=== PATIENT | female | born 1960 | race Caucasian/White ===

== ENCOUNTER → 2019-09-15 | Outpatient (CLI) | payer SELFPAY ==
[~2019-09-15] MED LIST: ALPR0.5T PO; ATOR40TA70 PO; CALC-250 PO; CALC600T12 PO; OMEP20TA33 PO; TRM50T PO
--- NOTE | 2019-09-15 15:50 | Diagnostic Imaging Report ---
INDICATION: Left wrist pain for 2 to 3 months. TIME OF EXAM: 3:39 PM. TECHNIQUE: Three views of the left wrist were obtained. FINDINGS: The distal radius and ulna are intact. There is a well-corticated osseous density adjacent to the ulnar styloid, perhaps an old fracture fragment. The carpus appears to be intact. The visualized metacarpals are unremarkable. No fractures are seen. IMPRESSION: No acute bony abnormality is detected. Dictated by: Dictated on workstation # [id number]
== END ==
LOC: RAD FS 15:06
PROVIDERS: ATTEND Nurse Practitioner
DX: M25.532 Pain in left wrist (principal)
CPT/HCPCS: 73110

== ENCOUNTER 2021-01-03 09:39 | Outpatient (CLI) | payer OTHER ==
[~2021-01-03] VITALS: Ht 157.5 cm; Wt 43.5 kg
[2021-01-03 09:31] VITALS: BP 124/81
[~2021-01-03 09:39] MED LIST changes: -CALC600T12 PO; +CALC600T91 PO
[2021-01-03] MEDS ORDERED: ONDANSETRON 4 MG/2 ML (SDV) Z0FRAN IV PRN (10:00)
[2021-01-03] MEDS ORDERED: ACETAMINOPHEN 500 MG TAB (TYLENOL) PO PRN (10:00)
[2021-01-03] MEDS ORDERED: EPINEPHrine INJECTION 1 MG/ML AMP IM PRN (10:00)
[2021-01-03] MEDS ORDERED: CASIRIVIMAB/IMDEVIMAB 1,200 MG in NS (IVPB) 250 ML IV ONE (10:00)
[2021-01-03] MEDS ORDERED: diphenhydrAMINE 50 MG/ML INJ (BENADRYL) IV PRN (10:00)
[2021-01-03 11:09] VITALS: BP 139/73
== END 2021-01-03 11:55 | disposition home or self-care (01) ==
LOC: INFUSION 09:39
PROVIDERS: ATTEND Registered Nurse
DX: Z23 Encounter for immunization (principal); U07.1 COVID-19

== ENCOUNTER 2021-05-14 19:44 | Emergency (ER) | payer OTHER ==
[~2021-05-14] VITALS: Ht 154 cm; Wt 47.0 kg
[2021-05-14 19:58] LABS: CLARITY,URINE CLOUDY; COLOR,URINE RED
[2021-05-14] MEDS ORDERED: PHENAZOPYRIDINE 100 MG (PYRIDIUM) TABLET PO ONE ×2 (20:00)
[2021-05-14] MEDS ORDERED: PHENAZOPYRIDINE 100 MG (PYRIDIUM) TABLET ONE (20:01)
[2021-05-14 20:03] LABS: BILIRUBIN,URINE NEGATIVE (NEGATIVE); GLUCOSE, URINE (UA) NEGATIVE (NEGATIVE); KETONES,URINE NEGATIVE (NEGATIVE); LEUKOCYTE ESTERASE ,URINE 1+ (NEGATIVE); NITRITE,URINE NEGATIVE (NEGATIVE); PH,URINE 7.5 (5-9); PROTEIN,URINE 2+ (NEGATIVE); RBC,URINE TNTC /HPF
--- NOTE | 2021-05-14 20:08 | ED GU-Female ---
General Chief Complaint: - Reproductive Stated Complaint: REPRODUCTIVE ISSUE Nursing Triage Note: PT REPORTS SHE THINKS SHE HAS A UTI BECAUSE SHE IS HAVING BURNING, FREQUENCY, AND BLOOD IN HER URINE. SHE HAS BLADDER PAIN. Source: patient Exam Limitations: no limitations History of Present Illness Date Seen by Provider: May 14, 2021 Time Seen by Provider: 19:45 Initial Comments Patient is a 61-year-old female who presents with urinary frequency urgency and burning with gross hematuria. Symptoms began 2 days ago. No fever chills, nausea vomiting or sweats. No flank pain or history of kidney stones. Patient is not on anticoagulation therapy. No medications or therapies taken prior to ED arrival. Also reports productive cough with clear sputum. Timing/Duration: yesterday Severity/Quality: moderate Location: suprapubic Radiation: other Activities at Onset: other Sexual [place] History: other Associated Symptoms: other Allergies and Home Medications Allergies Coded Allergies: No Allergy Information Available (Unverified , 12/01/15) EW Patient Home Medication List Home Medication List Reviewed: Yes Alprazolam (Xanax) 0.5 Mg Tablet, 0.5 MG PO DAILY, (Reported) Entered as Reported by: YOLANDA TERRAZAS on 12/15/15 1353 Atorvastatin Calcium (Atorvastatin Calcium) 40 Mg Tablet, 40 MG PO DAILY, (Reported) Entered as Reported by: YOLANDA TERRAZAS on 12/15/15 1353 Calcium Carbonate (Calcium) 600 Mg Tablet, 600 MG PO DAILY, (Reported) Entered as Reported by: YOLANDA TERRAZAS on 12/15/15 1353 Cholecalciferol (Vitamin D) 5,000 Unit Capsule, 5,000 UNIT PO DAILY, (Reported) Entered as Reported by: YOLANDA TERRAZAS on 12/15/15 1353 Omeprazole Magnesium (Prilosec Otc) 20 Mg Tablet.dr 20 MG PO DAILY Prescribed by: SAVANNAH MALONE on 12/19/15 1221 Tramadol HCl (Tramadol HCl) 50 Mg Tablet, 50 MG PO Q6H PRN for PAIN, (Reported) Entered as Reported by: YOLANDA TERRAZAS on 12/15/15 1353 Review of Systems Review of Systems Constitutional: see HPI Genitourinary: dysuria, frequency, hematuria, urgency Past Leidiju-Keuwwh-Nyxjfm Hx Patient Social History Tobacco Use?: Yes Tobacco type used: Cigarettes Smoking Status: Current Everyday Smoker Use of E-Cig and/or Vaping dev: No Substance use?: No Alcohol Use?: No Pt feels they are or have been: No Immunizations Up To Date First/Initial COVID19 Vaccinat: 2020 Second COVID19 Vaccination Shaun: 2020 COVID19 Vaccine Belt Glass Sander: pfizer Physical Exam Vital Signs Vital Signs - First Documented 05/14/21 19:49 Temp 36.4 Pulse 92 Resp 16 B/P (MAP) 155/104 (121) Pulse Ox 96 O2 Delivery Room Air Capillary Refill : Less Than 3 Seconds Height, Weight, BMI Height: 5'2.00" Weight: 102lbs. 0.0oz. [id number]; 19.00 BMI Method: General Appearance: WD/WN, no apparent distress HEENT: normal ENT inspection Neck: full range of motion Cardiovascular: normal peripheral pulses, regular rate, rhythm Respiratory: normal breath sounds Gastrointestinal: soft, tenderness (suprapubic pain) Back: no CVA tenderness Focused Exam Sepsis Stage: Ruled Out Progress/Results/Core Measures Suspected Sepsis SIRS Temperature: Pulse: 92 Respiratory Rate: 16 Blood Pressure 155 /104 Mean: 121 Results/Orders Lab Results Laboratory Tests Test 05/14/21 19:52 Range/Units My Orders Orders - HAWA BERNSTEIN DO Urinalysis (05/14/21 19:47) Phenazopyridine Tablet (Pyridium Tablet) (05/14/21 20:00) Phenazopyridine Tablet (Pyridium Tablet) (05/14/21 20:00) Vital Signs/I&O 05/14/21 19:49 Temp 36.4 Pulse 92 Resp 16 B/P (MAP) 155/104 (121) Pulse Ox 96 O2 Delivery Room Air Capillary Refill : Less Than 3 Seconds Blood Pressure Mean: 121 Departure Communication (Admissions) Pain addressed and first dose of antibiotics given for treatment of acute hemorrhagic cystitis. Will continue therapeutic and supportive care with PCP follow-up. Return precautions reviewed. Patient verbalizes understanding agreement discharge instructions prior to departure. Impression Primary Impression: Acute hemorrhagic cystitis Disposition: HOME, SELF-CARE Condition: Stable Departure-Patient Inst. Decision time for Depature: 20:09 Referrals: COLLEEN RODRIGUEZ DO (PCP) Primary Care Physician ALBARRAN,DORIAN R COMPARATOR OPERATOR (Family) Primary Care Physician Patient Instructions: Acute Cystitis (DC) Add. Discharge Instructions: Please increase fluids and take ibuprofen for pain and Pyridium as needed for additional relief. Complete full course of antibiotics and follow-up with PCP in 5 to 7 days for reevaluation. Return to the ED if new or worsening symptoms. All discharge instructions reviewed with patient and/or family. Voiced understanding. Scripts Phenazopyridine HCl (Pyridium) 200 Mg Tablet 1 TAB PO TID, #6 TAB Prov: HAWA BERNSTEIN DO 05/14/21 Doxycycline Hyclate (Doxycycline Hyclate) 100 Mg Tablet 100 MG PO BID, #14 TAB 0 Refills Prov: HAWA BERNSTEIN DO 05/14/21 HAWA BERNSTEIN DO May 14, 2021 20:07
[2021-05-14] MEDS ORDERED: PHEN-640 PO (20:11)
[2021-05-14] MEDS ORDERED: DOXY100T2 PO (20:11)
[2021-05-14] MEDS ORDERED: DOXYCYCLINE 100 MG (VIBRAMYCIN) TABLET PO SCH (20:15)
[2021-05-14 20:16] VITALS: BP 155/104
== END 2021-05-14 20:17 | disposition home or self-care (01) ==
LOC: EDUNIT# 19:44 → ER FS 19:45
DX: N30.01 Acute cystitis with hematuria (principal); F17.210 Nicotine dependence, cigarettes, uncomplicated
CPT/HCPCS: 81000; 87077; 87088; 99283